=== PATIENT | female | born 1955 | race Caucasian/White ===

== ENCOUNTER 2017-11-29 12:53 | Outpatient (CLI) | payer OTHER ==
--- NOTE | 2017-11-29 16:23 | CT ---
LOW DOSE SCREENING LUNG CT: Date: 11/29/17 HISTORY: 35+ years of smoking. Quit 12 years ago. Sleep apnea. COMPARISON: None. TECHNIQUE: Low dose screening CT was performed utilizing institution protocol. Reformatted images are submitted for interpretation. FINDINGS: Lung Screening Specific: Negative. Minor findings, not suspicious for primary lung cancer. Potential Significant Incidentals (Lung-RADS Category S): None. Pulmonary Incidentals: Minimal emphysematous changes in the lung apices. Other Incidentals: None. IMPRESSION: 1. Lung-RADS Category 1: Negative exam. No evidence of primary lung cancer. 2. Lung-RADS Category S: Negative. No new or unknown potential significant incidental findings requ ired urgent additional evaluation. RECOMMENDATION: Repeat exam in 1 year. POS: [facility]
== END 2017-11-29 12:54 | disposition home or self-care (01) ==
LOC: CT 12:53
PROVIDERS: ATTEND Internal Medicine Pulmonary Disease
DX: Z12.2 Encounter for screening for malignant neoplasm of respiratory organs (principal); Z87.891 Personal history of nicotine dependence
CPT/HCPCS: G0297

== ENCOUNTER 2018-03-12 08:57 | Day surgery (SDC) | payer MEDICARE, OTHER ==
[2018-03-09 10:25] VITALS: BMI 47.8
--- NOTE | 2018-03-12 13:10 | OP ---
DATE OF PROCEDURE: 03/12/2018 SURGEON: Stephan Alonso M.D. PROCEDURE: EGD and colonoscopy. PREOPERATIVE DIAGNOSES: 1. Dysphagia. 2. Family history of colorectal cancer, prior history of polyps. POSTOPERATIVE DIAGNOSES: 1. Mild reflux esophagitis distally. No overt stricture, dilation with 54-K[place] Live performed. This is a similar finding to her EGD from 2016. 2. Diverticulosis coli, sigmoid colon tortuous requiring changing the scope to an upper endoscope to reach the cecum. 3. Diverticulosis. 4. Diminutive polyp in the ascending colon removed by snare polypectomy. RECOMMENDATIONS: 1. PPI therapy. 2. Weight loss. 3. High fiber diet regarding fecal incontinence she has at times would even consider Citrucel daily supplementation. 4. PPI daily for reflux esophagitis, Prilosec OTC 20 mg recommended. ANESTHESIA: TIVA. PROCEDURE IN DETAIL: After the patient was informed of the risks, benefits, and possible complicatio ns of endoscopy including perforation, risks of bleeding, reaction to medication and aspiration, info rmed consent was obtained. The patient brought to endoscopy suite where she was sedated in a fashion . Once she was comfortable, a bite block was placed in incisural orifice. The endoscope was advance d through the esophagus, and to the second and third portion of duodenum and slowly removed. The duo denum was normal. The stomach was normal in forward and retroflexed views. The esophagus was notabl e for LA grade A reflux esophagitis. There was no evidence of stricture or lesions. With regard to the patient's history of dysphagia and response to dilatation in the past, dilation with a 54-[place] Live dilator was performed. Second look confirmed no effect. The scope was removed. The patient was turned in the room and rectal exam performed. The endoscope was advanced into the an al canal, through the colon to the cecum which was identified by the ileocecal valve and appendiceal orifice. There was diverticulosis coli in sigmoid colon with a tortuous area noted. There was no ev idence of inflammation or overt stricturing; however, the regular colonoscope could not advance so he re we had to switch to an upper endoscope, we were able to reach the cecum with this. There was a di minutive polyp 3 mm in size in the ascending colon removed by cold snare polypectomy and no lesions w ere identified. Retroflexion in the rectum revealed some internal hemorrhoids. The scope was remove d. The patient tolerated the procedure well with no complications.
[2018-03-12] MEDS ORDERED: PROPOFOL 200 MG/20 ML VIAL ONE (14:28)
[2018-03-12] MEDS ORDERED: Lidocaine 1% PF 5 ML VIAL ONE (14:28)
== END 2018-03-12 13:43 | disposition home or self-care (01) ==
LOC: SDC 08:57
PROVIDERS: ATTEND Internal Medicine Gastroenterology
PROC: 0D758ZZ Dilation of Esophagus, Via Natural or Artificial Opening Endoscopic (ICD-10-PCS; principal; 2018-03-12)
PROC: 0DBK8ZZ Excision of Ascending Colon, Via Natural or Artificial Opening Endoscopic (ICD-10-PCS; 2018-03-12)
DX: K21.0 Gastro-esophageal reflux disease with esophagitis (principal); R13.10 Dysphagia, unspecified; K57.30 Diverticulosis of large intestine without perforation or abscess without bleeding; K63.5 Polyp of colon; G47.30 Sleep apnea, unspecified; F41.9 Anxiety disorder, unspecified; Z86.010 Personal history of colon polyps; Z80.0 Family history of malignant neoplasm of digestive organs; Z83.71 Family history of colonic polyps; Z79.899 Other long term (current) drug therapy; Z88.2 Allergy status to sulfonamides
CPT/HCPCS: J2001; J2704

== ENCOUNTER 2018-05-25 10:47 | Outpatient (CLI) | payer OTHER | END 2018-05-25 10:48 | disposition home or self-care (01) | LOC: DTY/OP 10:47 | PROVIDERS: ATTEND Surgery | DX: G47.30 Sleep apnea, unspecified (principal) | CPT/HCPCS: 97802 ==

== ENCOUNTER 2018-07-10 10:24 | Outpatient (CLI) | payer MEDICARE, OTHER ==
[2018-07-10 11:56] LABS: #Basophils 0.1 thou/uL (0.0-0.2); #Eosinphils 0.1 thou/uL (0.0-0.7); #Lymphocytes 1.4 thou/uL (1.20-3.40); #Monocytes 0.5 thou/uL (0.11-0.59); #Neutrophils 4.8 thou/uL (1.40-6.50); %Basophils 0.9 % (0.0-1.0); %Eosinophils 1.3 % (0.0-10.0); %Monocytes 7.3 % (0.0-10.0); %Neutrophils 70.5 % (42.0-75.0); Hemoglobin 13.6 g/dL (12.0-16.0); Mean Corpuscular HGB CONC 31.2 g/dL (32.0-36.0); Mean Corpuscular Hemoglobin 29.4 pg (27.0-31.0); Mean Corpuscular Volume 94.2 fL (78.0-98.0); Mean Platelet Volume 7.2 fL (7.4-10.4); Platelet Count 315 thou/uL (130-400); RBC Distribution Width 12.5 % (11.5-14.5); Red Blood Cell (RBC) Count 4.62 mill/uL (4.20-5.40); White Blood Cell (WBC) Count 6.8 thou/uL (4.8-10.8)
[2018-07-10 12:00] LABS: INR-International Normal Ratio 0.9; Prothrombin Time 12.6 SEC (12.0-14.7)
[2018-07-10 12:16] LABS: ALT (SGPT) 22 U/L (8-55); AST (SGOT) 21 U/L (5-34); Albumin 4.3 g/dL (3.4-4.8); Alkaline Phosphatase 84 U/L (40-150); Anion Gap 13 mmol/L (10-20); BUN (Urea Nitrogen) 14 mg/dL (9.8-20.1); Bilirubin, Total 0.4 mg/dL (0.2-1.2); Calc. Creatinine Clearance 0 mL/min (70-130); Calcium 9.4 mg/dL (7.8-10.44); Carbon Dioxide 27 mmol/L (23-31); Chloride 105 mmol/L (98-107); Cholesterol 198 mg/dl (< 200 Desired); Estimated GFR-MDRD 84; Globulin 2.9 g/dL (2.4-3.5); Glucose 87 mg/dL (80-115); HDL Cholesterol 49 mg/dL (>60 Neg Risk); LDL Cholesterol, Calculated 132 mg/dL; Potassium 4.1 mmol/L (3.5-5.1); Protein, Total 7.2 g/dL (6.0-8.3); Sodium 141 mmol/L (136-145); Triglycerides 84 mg/dL (Less than 150)
== END 2018-07-10 10:25 | disposition home or self-care (01) ==
LOC: LABBT 10:24
PROVIDERS: ATTEND Internal Medicine Cardiovascular Disease
DX: Z01.812 Encounter for preprocedural laboratory examination (principal); R94.39 Abnormal result of other cardiovascular function study
CPT/HCPCS: 80053; 80061; 85025; 85610; 85730

== ENCOUNTER 2018-07-16 10:17 | Day surgery (SDC) | payer MEDICARE, OTHER ==
[2018-07-10 10:42] VITALS: BMI 48.9
[2018-07-16] MEDS ORDERED: Lidocaine 1% (PF) 30 ML VIAL ONE (10:47)
[2018-07-16] MEDS ORDERED: Fentanyl 100 MCG/2 ML VIAL ONE (10:47)
[2018-07-16] MEDS ORDERED: Midazolam HCl 2 mg/2 ml Vial ONE (10:47)
[2018-07-16] MEDS ORDERED: Nitroglycerin 100MG/250ML BOT 250 ML ONE (11:33)
[2018-07-16] MEDS ORDERED: Verapamil 5 MG/2 ML VIAL ONE (11:33)
[2018-07-16] MEDS ORDERED: Heparin 10,000 UNITS/1 ML VIAL ONE (11:33)
[2018-07-16] MEDS ORDERED: Iopamidol 370 76% 100 ML VIAL ONE (13:32)
== END 2018-07-16 15:00 | disposition home or self-care (01) ==
LOC: CCL 10:17
PROVIDERS: ATTEND Internal Medicine Cardiovascular Disease
PROC: 4A023N7 Measurement of Cardiac Sampling and Pressure, Left Heart, Percutaneous Approach (ICD-10-PCS; principal; 2018-07-16)
PROC: B2111ZZ Fluoroscopy of Multiple Coronary Arteries using Low Osmolar Contrast (ICD-10-PCS; 2018-07-16)
DX: R94.39 Abnormal result of other cardiovascular function study (principal); R06.02 Shortness of breath; E66.9 Obesity, unspecified; Z68.42 Body mass index [BMI] 45.0-49.9, adult; Z79.82 Long term (current) use of aspirin; Z79.899 Other long term (current) drug therapy; Z88.2 Allergy status to sulfonamides
CPT/HCPCS: 93458; 99152; C1769; J1644; J2001; J2250; J3010

== ENCOUNTER 2018-08-16 10:15 | Inpatient (IN) | payer MEDICARE, OTHER ==
[2018-08-29] MEDS ORDERED: Heparin 5,000 UNITS/ML VIAL ONE (06:38)
[2018-08-29] MEDS ORDERED: CEFAZOLIN 2 GM/50 ML BAG ONE (06:43)
[2018-08-29] MEDS ORDERED: Fentanyl 250 MCG/5 ML VIAL ONE (06:51)
[2018-08-29] MEDS ORDERED: Bupivacaine/Epinephrine 0.25% 30 ML VIAL ONE (07:06)
[2018-08-29] MEDS ORDERED: Promethazine HCl 25 MG/ML VIAL SLOW IVP PRN (08:11)
[2018-08-29] MEDS ORDERED: Ondansetron HCl/PF 4 MG/2 ML Vial IVP PRN (08:11)
[2018-08-29] MEDS ORDERED: Promethazine HCl 25 MG/ML VIAL IM PRN ×3 (08:11→08:46)
[2018-08-29] MEDS ORDERED: HYDROmorphone 10 mg/100 ml CADD IVPB PRN (08:12)
[2018-08-29] MEDS ORDERED: diphenhydrAMINE 25 MG CAP PO PRN (08:12)
[2018-08-29] MEDS ORDERED: Naloxone HCl 0.4 mg/ml Vial IV PRN (08:12)
[2018-08-29] MEDS ORDERED: diphenhydrAMINE 50 MG/ML VIAL IVP PRN ×2 (08:12→08:46)
[2018-08-29] MEDS ORDERED: Zolpidem Tartrate 5 MG TAB PO PRN (08:12)
[2018-08-29] MEDS ORDERED: Ondansetron PF 4 MG/2 ML Vial IVP PRN ×2 (08:12→08:46)
[2018-08-29] MEDS ORDERED: diphenhydrAMINE 50 MG/ML VIAL IM PRN (08:12)
[2018-08-29] MEDS ORDERED: Communication Order-Pharmacy FS SCH (08:15)
[2018-08-29] MEDS ORDERED: Hydrocodone-Acetamin 15 ML UDCUP PO PRN (08:46)
[2018-08-29] MEDS ORDERED: Dextrose 5% in Water 1,000 ML IV PRN (08:46)
[2018-08-29] MEDS ORDERED: Dextrose 50% Abboject 50 ML SYRINGE SLOW IVP PRN (08:46)
[2018-08-29] MEDS ORDERED: hydrALAZINE 20 MG/ML VIAL SLOW IVP PRN (08:46)
[2018-08-29] MEDS ORDERED: Fentanyl 100 MCG/2 ML VIAL ONE (08:56)
[2018-08-29] MEDS ORDERED: Promethazine HCl 25 MG/ML VIAL ONE (08:56)
[2018-08-29] MEDS ORDERED: CEFAZOLIN/Water 2 GM/20 ML SYRINGE SLOW IVP SCH (09:00)
[2018-08-29] MEDS ORDERED: D5 1/2 NS w/20 mEq KCL 1,000 ML ONE (09:23)
--- NOTE | 2018-08-29 10:13 | OP ---
DATE OF PROCEDURE: 08/29/2018 PREOPERATIVE DIAGNOSIS: Morbid obesity. PROCEDURES PERFORMED: Laparoscopic sleeve gastrectomy, esophagogastroscopy. INDICATIONS: A 63-year-old female, who has been overweight for many years, attempted multiple weight loss programs without success. FINDINGS: A 38-[place]inn[place] bougie was used. There were some adhesions on the left anterior abdomen that were taken down. DESCRIPTION OF PROCEDURE: After informed consent was obtained, the patient was taken to the operating room and given general endotracheal anesthesia, placed in the supine position. Abdomen was prepped and draped in usual fashion. Local anesthesia was infiltrated subcutaneously and deep, and a 12 mm incision was performed approximately 8 inches above the xiphoid slightly to the left. Veress needle inserted. Drop test performed. Pneumoperitoneum was created to a pressure of 15 mmHg, and the patient placed in steep reverse Trendelenburg position. January liver retractor inserted. The left lobe of the liver retracted superiorly. Pylorus was identified, and a 12-mm port placed on the right beneath it. Then, a laparoscopic lysis of adhesion was performed along the left lateral abdomen. Then, two 12-mm ports were placed in the left subcostal. The omentum was taken off the greater curvature 5 cm from the pylorus utilizing the ligature. Short gastrics divided with LigaSure and the left crura defined with ligature. A 38-Finn[place] bougie was inserted, directed into the antrum. Linear 60-mm green load stapler used to divide the antrum to the bougie, gold load along the bougie, and a series of blue through the angle of His. Intraoperative endoscopy was performed. The video endoscope inserted under direct vision, advanced into the sleeve. The staple line inspected. There was no bleeding. Staple line then tested. There was no air leak. Stomach decompressed. Scope removed. The remnants of the stomach removed from the abdomen through the left lateral port site. The fascia was closed with 0 Vicryl suture and the GraNee needle. Trocars and retractors were removed. The skin closed with interrupted 4-0 Rapide. Dermabond applied. The patient tolerated the procedure well, transferred to recovery in good condition. Sponge and needle count verified correct x2. Job ID: [id number]
[2018-08-29] MEDS ORDERED: Ondansetron PF 4 MG/2 ML Vial ONE (11:37)
[2018-08-29] MEDS: Pantoprazole 40 MG VIAL IVP SCH (13:15)
[2018-08-29] MEDS: Ketorolac Tromethamine 30 MG/ML VIAL IVP SCH ×3 (13:18→22:14)
[2018-08-29] MEDS: D5 1/2 NS w/20 mEq KCL 1,000 ML IV SCH ×3 (13:19→23:49)
[2018-08-29 13:20] VITALS: BMI 47.6
[2018-08-29] MEDS: CEFAZOLIN 2 GM/50 ML-DEXTROSE 2 GM in Premix Bag 1 BAG IVPB SCH ×2 (15:05→22:14)
[2018-08-30] MEDS: Ketorolac Tromethamine 30 MG/ML VIAL IVP SCH ×2 (05:04→11:32)
[2018-08-30] MEDS ORDERED: Enoxaparin Sodium 40 MG/0.4 ML SYRINGE SC SCH (06:00)
[2018-08-30 08:27] LABS: Anion Gap 13 mmol/L (10-20); BUN (Urea Nitrogen) 10 mg/dL (9.8-20.1); Calc. Creatinine Clearance 164 mL/min (70-130); Calcium 8.7 mg/dL (7.8-10.44); Carbon Dioxide 26 mmol/L (23-31); Chloride 106 mmol/L (98-107); Estimated GFR-MDRD 90; Glucose 87 mg/dL (80-115); Potassium 3.8 mmol/L (3.5-5.1); Sodium 141 mmol/L (136-145)
[2018-08-30] MEDS: Pantoprazole 40 MG VIAL IVP SCH (08:38)
[2018-08-30 08:39] LABS: #Lymphocytes 1.4 thou/uL (1.20-3.40); #Monocytes 0.8 thou/uL (0.11-0.59); #Neutrophils 6.5 thou/uL (1.40-6.50); %Basophils 0.2 % (0.0-1.0); %Eosinophils 0.2 % (0.0-10.0); %Monocytes 8.6 % (0.0-10.0); Hemoglobin 12.5 g/dL (12.0-16.0); Mean Corpuscular HGB CONC 31.9 g/dL (32.0-36.0); Mean Corpuscular Hemoglobin 30.1 pg (27.0-31.0); Mean Corpuscular Volume 94.3 fL (78.0-98.0); Mean Platelet Volume 7.6 fL (7.4-10.4); Platelet Count 281 thou/uL (130-400); RBC Distribution Width 12.5 % (11.5-14.5); Red Blood Cell (RBC) Count 4.16 mill/uL (4.20-5.40); White Blood Cell (WBC) Count 8.6 thou/uL (4.8-10.8)
[2018-08-30] MEDS: D5 1/2 NS w/20 mEq KCL 1,000 ML IV SCH (11:39)
[2018-08-30 12:04] VITALS: BP 107/62; TEMP 97.7
--- NOTE | 2018-08-30 14:10 | RAD ---
UPPER GI SERIES SINGLE COLUMN: Date: 08-30-18 History: 63-year-old female very recently status post bariatric surgery. Technique: Patient swallowed 15 ml of Gastrografin upright while brief, intermittent fluoroscopy was performed. FINDINGS: Some of the contrast material passes rapidly through the narrowed gastric channel. The rest of the co ntrast material remains in the esophagus, where there are multiple tertiary contractions. There is a focal diverticulum at the esophagogastric junction. No leakage is identified. IMPRESSION: 1. No evidence of major immediate complication. 2. Diverticulum at esophagogastric junction. 3. Diffuse esophageal spasm vs presbyesophagus. POS: [facility]
[2018-08-31] MEDS ORDERED: Enoxaparin Sodium 40 MG/0.4 ML SYRINGE SC SCH (09:00)
--- NOTE | 2018-08-31 10:08 | DIS ---
DATE OF ADMISSION: 08/29/2018 DATE OF DISCHARGE: 08/30/2018 DISCHARGE DIAGNOSIS: Morbid obesity. PROCEDURES DURING ADMISSION: Laparoscopic sleeve gastrectomy, intraoperative esophagogastroscopy, and postoperative Gastrografin swallow. HOSPITAL COURSE: The patient was admitted, was taken to the operating room, where she underwent sleeve gastrectomy. Postoperatively, she has done well. Her swallow study was fine. She was started on liquids. She is tolerating well. She was discharged home on hydrocodone and Zofran. She will follow up with me in 2 weeks. Job ID: [id number]
== END 2018-08-30 15:10 | disposition home or self-care (01) | DRG 621 ==
LOC: SURG A 08-29 05:48
PROVIDERS: ADMIT Surgery; ATTEND Surgery
PROC: 0DB64Z3 Excision of Stomach, Percutaneous Endoscopic Approach, Vertical (ICD-10-PCS; principal; 2018-08-29)
DX: E66.01 Morbid (severe) obesity due to excess calories (principal); G47.30 Sleep apnea, unspecified; Z68.42 Body mass index [BMI] 45.0-49.9, adult
CPT/HCPCS: 36415; 74241; 80048; 85025; 88307; 88312; 94760; C9113; J1644; J1650; J1885; J2405; J2550; J3010

== ENCOUNTER 2018-08-16 10:26 | Outpatient (CLI) | payer MEDICARE, OTHER ==
[2018-08-16 11:16] LABS: #Eosinphils 0.1 thou/uL (0.0-0.7); #Lymphocytes 1.2 thou/uL (1.20-3.40); #Monocytes 0.5 thou/uL (0.11-0.59); %Basophils 0.4 % (0.0-1.0); %Eosinophils 1.2 % (0.0-10.0); %Lymphocytes 17.9 % (21.0-51.0); %Monocytes 6.8 % (0.0-10.0); %Neutrophils 73.7 % (42.0-75.0); Hemoglobin 13.5 g/dL (12.0-16.0); Mean Corpuscular HGB CONC 32.4 g/dL (32.0-36.0); Mean Corpuscular Hemoglobin 29.7 pg (27.0-31.0); Mean Corpuscular Volume 91.9 fL (78.0-98.0); Mean Platelet Volume 7.1 fL (7.4-10.4); Platelet Count 264 thou/uL (130-400); RBC Distribution Width 12.4 % (11.5-14.5); Red Blood Cell (RBC) Count 4.55 mill/uL (4.20-5.40); White Blood Cell (WBC) Count 6.8 thou/uL (4.8-10.8)
--- NOTE | 2018-08-16 11:39 | RAD ---
FRONTAL AND LATERAL IMAGING OF CHEST: Date: 08/16/18 COMPARISON: None. HISTORY: Preoperative patient. FINDINGS: There is no pneumothorax, pleural fluid, focal consolidation, or alveolar edema. IMPRESSION: No acute findings. POS: [facility]
[2018-08-16 11:42] LABS: ALT (SGPT) 16 U/L (8-55); AST (SGOT) 16 U/L (5-34); Albumin 4.2 g/dL (3.4-4.8); Alkaline Phosphatase 84 U/L (40-150); Anion Gap 10 mmol/L (10-20); BUN (Urea Nitrogen) 18 mg/dL (9.8-20.1); Bilirubin, Direct 0.2 mg/dL (0.1-0.3); Bilirubin, Total 0.4 mg/dL (0.2-1.2); Calc. Creatinine Clearance 0 mL/min (70-130); Calcium 9.3 mg/dL (7.8-10.44); Carbon Dioxide 30 mmol/L (23-31); Chloride 105 mmol/L (98-107); Estimated GFR-MDRD 90; Globulin 2.9 g/dL (2.4-3.5); Glucose 98 mg/dL (80-115); Potassium 3.9 mmol/L (3.5-5.1); Protein, Total 7.1 g/dL (6.0-8.3); Sodium 141 mmol/L (136-145)
[2018-08-16 19:58] LABS: Hemoglobin A1c 5.7 % (4.0-6.0)
--- NOTE | 2018-08-17 18:51 | EKG ---
Test Reason : Blood Pressure : / mmHG Vent. Rate : 068 BPM Atrial Rate : 068 BPM P-R Int : 138 ms QRS Dur : 080 ms QT Int : 414 ms P-R-T Axes : 033 001 029 degrees QTc Int : 440 ms Normal sinus rhythm Possible Anterior infarct , age undetermined Abnormal ECG No previous ECGs available Confirmed by Lindsay ROCHA ([id number]) on 08/17/2018 6:51:05 PM Referred By: SAVANNA Confirmed By:Lindsay ROCHA
== END 2018-08-16 10:27 | disposition home or self-care (01) ==
LOC: LABBT 10:26
PROVIDERS: ATTEND Surgery
DX: Z01.818 Encounter for other preprocedural examination (principal); G47.30 Sleep apnea, unspecified
CPT/HCPCS: 71046; 80053; 80076; 83036; 85025; 93005; 93010

== ENCOUNTER 2024-02-06 08:51 | Outpatient (CLI) | payer MEDICARE, OTHER ==
[2024-02-06 11:05] LABS: #Basophils 0.04 10x3/uL (0.0-0.2); #Eosinphils 0.11 10x3/uL (0.0-0.5); #Monocytes 0.48 10x3/uL (0.0-1.1); #Neutrophils 3.86 10x3/uL (1.5-8.4); %Basophils 0.7 % (0.0-2.0); %Eosinophils 1.9 % (0.0-6.0); %Lymphocytes 21.8 % (18.0-47.0); %Monocytes 8.3 % (0.0-10.0); Hematocrit 40.9 % (34.9-44.5); Hemoglobin 13.3 g/dL (12.0-15.5); Mean Corpuscular HGB CONC 32.5 g/dL (32.0-36.0); Mean Corpuscular Volume 92.3 fl (81.6-98.3); Mean Platelet Volume 9.6 fl (7.4-10.4); Platelet Count 282 10x3/uL (150-450); RBC Distribution Width 14.5 % (11.5-14.5); Red Blood Cell (RBC) Count 4.43 10x6/uL (3.90-5.03); White Blood Cell (WBC) Count 5.8 10x3/uL (3.5-10.5)
[2024-02-06 11:34] LABS: Anion Gap 13 mmol/L (10-20); BUN (Urea Nitrogen) 33 mg/dL (9.8-20.1); Calc. Creatinine Clearance 0 mL/min (70-130); Calcium 9.3 mg/dL (7.8-10.44); Carbon Dioxide 26 mmol/L (23-31); Chloride 108 mmol/L (98-107); Estimated GFR 82; Glucose 97 mg/dL (80-115); Potassium 4.3 mmol/L (3.5-5.1); Sodium 143 mmol/L (136-145)
[2024-02-06 11:38] LABS: INR-International Normal Ratio 0.9; Prothrombin Time 9.8 sec (9.5-12.1)
== END 2024-02-06 08:52 | disposition home or self-care (01) ==
LOC: LABBT 08:51
PROVIDERS: ATTEND Orthopaedic Surgery
DX: Z01.818 Encounter for other preprocedural examination (principal); M17.11 Unilateral primary osteoarthritis, right knee; Z96.651 Presence of right artificial knee joint
CPT/HCPCS: 80048; 85025; 85610; 87081; 93005; 93010

== ENCOUNTER 2024-02-13 06:57 | Observation (INO) | payer MEDICARE, OTHER ==
[2024-02-06 09:56] VITALS: BMI 43.4
[2024-02-13] MEDS ORDERED: Vancomycin (BATCH) 1.5 GM/300 ML BAG ONE (07:24)
[2024-02-13] MEDS ORDERED: Tranexamic Acid 1,000 MG/10 ML VIAL ONE (07:24)
[2024-02-13] MEDS ORDERED: Sodium Chloride 0.9% 100 ML ONE ×2 (07:24→10:09)
[2024-02-13] MEDS ORDERED: Bupivacaine PF 0.5% 30 ML VIAL ONE (08:05)
[2024-02-13] MEDS ORDERED: EPINEPHrine 1 MG/ML VIAL ONE (08:05)
[2024-02-13] MEDS ORDERED: fentaNYL 50 mcg/mL 1 mL Vial ONE ×3 (08:05→13:32)
[2024-02-13] MEDS ORDERED: Midazolam HCl 2 mg/2 ml Vial ONE (08:05)
[2024-02-13] MEDS ORDERED: Famotidine/PF 20 mg/2ml Vial ONE (08:46)
[2024-02-13] MEDS ORDERED: Acetaminophen 500 MG TAB ONE (08:46)
[2024-02-13] MEDS ORDERED: fentaNYL 50 mcg/mL 1 mL Vial SLOW IVP PRN (09:10)
[2024-02-13] MEDS ORDERED: Zolpidem Tartrate 5 MG TAB PO PRN ×2 (09:15→13:03)
[2024-02-13] MEDS ORDERED: Promethazine HCl 25 MG/ML VIAL IM PRN ×2 (09:15→13:03)
[2024-02-13] MEDS ORDERED: traMADol HCl 50 MG TAB PO PRN ×2 (09:15)
[2024-02-13] MEDS ORDERED: Ondansetron PF 4 MG/2 ML Vial IVP PRN ×2 (09:15→13:03)
[2024-02-13] MEDS ORDERED: Ropivacaine 0.2% 550 ML 550 ML NERVE BLCK SCH (09:15)
[2024-02-13] MEDS ORDERED: Bupivacaine 0.25% HCL 30 ML VIAL ONE (09:58)
[2024-02-13] MEDS ORDERED: Lidocaine 1% PF 5 ML VIAL ONE (10:03)
[2024-02-13] MEDS ORDERED: fentaNYL PF 100 MCG/2 ML SYRINGE ONE ×2 (10:03→11:58)
[2024-02-13] MEDS ORDERED: Dexamethasone 20 MG/5 ML VIAL ONE (10:03)
[2024-02-13] MEDS ORDERED: Ondansetron PF 4 MG/2 ML Vial ONE (10:03)
[2024-02-13] MEDS ORDERED: PROPOFOL 20 ML ONE (10:03)
[2024-02-13] MEDS ORDERED: CEFAZOLIN 2 GM VIAL ONE (10:09)
[2024-02-13] MEDS ORDERED: ePHEDrine Sulfate 50 MG/10 ML VIAL ONE (11:11)
[2024-02-13] MEDS ORDERED: diphenhydrAMINE 25 MG CAP PO PRN (13:03)
[2024-02-13] MEDS ORDERED: Ipratropium/Albuterol 3 ML NEB ONE (13:08)
[2024-02-13] MEDS ORDERED: Albuterol 200 PUFF (6.7GM INHALER) INH PRN (14:37)
[2024-02-13] MEDS: Sodium Chloride 0.9% 1,000 ML IV SCH (14:53)
[2024-02-13] MEDS: Ketorolac Tromethamine 30 MG (1 mL) VIAL IVP SCH (14:54)
[2024-02-13] MEDS: CEFAZOLIN 2 GM in Sodium Chloride 0.9% 100 ML IVPB SCH (17:17)
[2024-02-13] MEDS: Acetaminophen 325 MG TAB PO PRN (21:36)
[2024-02-13] MEDS: Melatonin 3 MG TAB PO SCH (21:36)
[2024-02-13] MEDS: Pantoprazole DR 40 MG TAB PO SCH (21:36)
[2024-02-13] MEDS: Cyclobenzaprine 10 MG TAB PO SCH (21:36)
[2024-02-13] MEDS: Sertraline 100 MG TAB PO SCH (21:36)
[2024-02-13] MEDS: Aspirin 81 mg Enteric Coated Tablet PO SCH (21:36)
[2024-02-13] MEDS: Prazosin HCl 1 MG CAP PO SCH (22:58)
[2024-02-14 05:34] LABS: Hematocrit 37.2 % (36.0-47.0); Hemoglobin 11.8 g/dL (12.0-16.0); Mean Corpuscular HGB CONC 31.7 g/dL (32.0-36.0); Mean Corpuscular Hemoglobin 29.9 pg (27.0-31.0); Mean Corpuscular Volume 94.2 fL (78.0-98.0); Mean Platelet Volume 9.4 fL (7.4-10.4); Platelet Count 214 10x3/uL (130-400); RBC Distribution Width 14.6 % (11.5-14.5); Red Blood Cell (RBC) Count 3.95 mill/uL (4.20-5.40)
[2024-02-14 05:57] LABS: Anion Gap 14 mmol/L (10-20); BUN (Urea Nitrogen) 15 mg/dL (9.8-20.1); Calc. Creatinine Clearance 124 mL/min (70-130); Calcium 8.4 mg/dL (7.8-10.44); Carbon Dioxide 27 mmol/L (23-31); Chloride 107 mmol/L (98-107); Estimated GFR 87; Glucose 127 mg/dL (80-115); Potassium 4.3 mmol/L (3.5-5.1); Sodium 144 mmol/L (136-145)
[2024-02-14] MEDS: Senokot S 8.6-50 MG TAB PO SCH (08:16)
[2024-02-14] MEDS: HYDROcodone/Acetaminophen 10/325 mg Tablet PO PRN ×2 (08:16→15:02)
[2024-02-14] MEDS: Loratadine 10 MG TAB PO SCH (08:17)
[2024-02-14] MEDS: Multivitamin W/ Minerals 1 TAB PO SCH (08:17)
[2024-02-14] MEDS: busPIRone HCl 10 MG TAB PO SCH (08:17)
[2024-02-14] MEDS: Ferrous Gluconate 324 MG TAB PO SCH (08:17)
[2024-02-14] MEDS ORDERED: ETHACRYNIC ACID 25 MG PO SCH (09:00)
[2024-02-14 16:38] VITALS: BP 132/74; TEMP 97.4
== END 2024-02-14 19:30 ==
LOC: SDC 06:57 → SURG B 14:25
PROVIDERS: ADMIT Orthopaedic Surgery; ATTEND Orthopaedic Surgery
PROC: 0SRC0JZ Replacement of Right Knee Joint with Synthetic Substitute, Open Approach (ICD-10-PCS; principal; 2024-02-13)
DX: M17.11 Unilateral primary osteoarthritis, right knee (principal); J44.9 Chronic obstructive pulmonary disease, unspecified; Z79.899 Other long term (current) drug therapy; E66.01 Morbid (severe) obesity due to excess calories; F32.A Depression, unspecified; F41.9 Anxiety disorder, unspecified; N18.2 Chronic kidney disease, stage 2 (mild); Z90.710 Acquired absence of both cervix and uterus; Z90.49 Acquired absence of other specified parts of digestive tract; Z98.51 Tubal ligation status; Z98.84 Bariatric surgery status; Z79.51 Long term (current) use of inhaled steroids; Z87.891 Personal history of nicotine dependence; Z88.2 Allergy status to sulfonamides; Z88.6 Allergy status to analgesic agent
CPT/HCPCS: 27447; 64447; 73560; 80048; 83735; 85027; 97110; 97116 ×2; 97530 ×2; 97535; A4306; C1713; C1776; C1889; J0171; J0665 ×2; J1100; J1885 ×2; J2250; J2405; J2704; J2795; J3010; J3370; J3490 ×2; S0028; 36415; J7620

== ENCOUNTER 2024-03-26 12:43 | Outpatient (CLI) | payer MEDICARE, OTHER | END 2024-03-26 12:44 | disposition home or self-care (01) | LOC: SCSRAD 12:43 | PROVIDERS: ATTEND Internal Medicine Rheumatology | DX: M25.541 Pain in joints of right hand (principal); M25.542 Pain in joints of left hand; M19.042 Primary osteoarthritis, left hand; M19.041 Primary osteoarthritis, right hand ==

== ENCOUNTER 2024-07-30 13:31 | Outpatient (CLI) | payer MEDICARE, OTHER | END 2024-07-30 13:32 | disposition home or self-care (01) | LOC: SCSRAD 13:31 | PROVIDERS: ATTEND Family Medicine | DX: R05.9 Cough, unspecified (principal) | CPT/HCPCS: 71046 ==